=== PATIENT | male | born 1960 | race Asian ===

== ENCOUNTER 2018-04-25 15:11 | Emergency (ER) | payer OTHER ==
[~2018-04-25] VITALS: Ht 165.1 cm; Wt 80.7 kg
[2018-04-25 15:21] VITALS: BP 169/100
[2018-04-25] MEDS ORDERED: Norco 5mg/325mg tab ORAL ONE (15:30)
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
[2018-04-25] MEDS ORDERED: TRAMADOL HCL50 MG ORAL (16:39)
[2018-04-25] MEDS ORDERED: CYCLOBENZAPRINE10 MG ORAL (16:39)
--- NOTE | 2018-04-25 16:39 | Diagnostic Imaging Report ---
Indications: Knee pain Technique: Three views of the left knee Comparison: None Findings: No acute fractures. No dislocations. Joint spaces are preserved. No radiopaque foreign body. Normal mineralization. Impression: No acute process
--- NOTE | 2018-04-25 16:41 | Diagnostic Imaging Report ---
. Indications: Thoracic spine pain Technique: Two views of the thoracic spine Comparison: None Findings: Bony alignment is normal. Vertebral body heights are preserved. The disc spaces are preserved. The pedicles are intact. There are cholecystectomy clips incidentally noted Impression: No acute process
--- NOTE | 2018-04-25 16:43 | Diagnostic Imaging Report ---
Indication: Lumbar spine pain Technique: 3 views of the lumbar spine Comparison: None Findings:No acute fractures. No dislocations. There are minimal degenerative proliferative changes noted. Pedicles are intact. Sacral arches are preserved. Sacroiliac joint spaces are preserved. The surrounding soft tissues are unremarkable except for cholecystectomy clips Impression: No acute process
[2018-04-25 16:55] VITALS: BP 169/100
== END 2018-04-25 16:56 | disposition home or self-care (01) ==
LOC: EMR 15:42
DX: M54.5 Low back pain (principal); V43.52XA Car driver injured in collision with other type car in traffic accident, initial encounter; Y92.410 Unspecified street and highway as the place of occurrence of the external cause; I10 Essential (primary) hypertension
CPT/HCPCS: 72020; 72070; 99284